=== PATIENT | male | born 1960 | race Caucasian/White ===

== ENCOUNTER 2016-09-10 00:08 | Day surgery (SDC) | payer OTHER ==
[~2016-09-10] VITALS: Ht 177.8 cm; Wt 73.6 kg
[2016-09-10] VITALS (10 sets, daily range): BP systolic 109–134; BP diastolic 69–78; PULSE 74–83; RESP 14–18; O2SAT 89–97
[~2016-09-10 00:08] MED LIST: ALBU8.5H2 INHALATION; ASPI-973 PO; FLUR15CA14 PO; FURO-129 PO; HYDR-4003 PO; SYMINH INHALATION; TIOT18CA3 IH
[2016-09-10] MEDS ORDERED: 0.9% Sodium Chloride 1,000 ML IV ONE (10:25)
[2016-09-10 11:40] LABS: BASOPHILS % (AUTO) 0.5 % (0-3); EOSINOPHILS % (AUTO) 0.7 % (0-5); Mean Corpuscular Hemoglobin 34.2 pg (27.0-35.0); NEUTROPHILS % (AUTO) 75.8 % (40-74); Platelet Count 235 bil/L (150-400)
[2016-09-10 11:52] LABS: INR 1.03 ratio
--- NOTE | 2016-09-10 12:03 | NUR ---
[facility] ADMIT 56 YEAR OLD MALE ADMITTED TO [facility] FOR HEART CATH TODAY AT 1100. PT HIGHLY ANXIOUS, DR PEREZ NOTIFIED AND PT WAS MEDICATED WITH ATIVAN 0.5MG IV ONCE IV WAS STARTED BY IVT. QUESTIONS ANSWERED, CONSENT IS SIGNED, AND MED REC COMPLETED. PT IS RESTING COMFORTABLY WITH AT BEDSIDE.
[2016-09-10] MEDS ORDERED: Heparin 5,000 Units/500 mL NS Premix IV ONE (13:24)
[2016-09-10] MEDS ORDERED: fentaNYL-PF 50 mCg/mL 2 mL Inj ONE (13:36)
[2016-09-10] MEDS ORDERED: 0.9% Sodium Chloride 250 ML IV PRN (14:20)
[2016-09-10] MEDS ORDERED: Atropine 1 mg/10 mL (Code) Syringe IVPUSH PRN (14:20)
[2016-09-10] MEDS ORDERED: HYDROcodone-APAP 5-325 mg Tablet PO PRN (14:20)
[2016-09-10] MEDS ORDERED: 0.9% Sodium Chloride 1,000 ML IV PRN (14:20)
[2016-09-10] MEDS ORDERED: Ondansetron 2 mg/mL 2 mL Inj IVPUSH PRN (14:20)
--- NOTE | 2016-09-10 17:28 | NUR ---
[facility] PT RETURNED FROM GROUP THERAPIST AT 1435. RIGHT GROIN WITH PERCLOSE HAS REMAINED SOFT, NON TENDER, NO BLEEDING OR HEMATOMA NOTED. RIGHT DP 2+. HE COMPLETED BEDREST AND AMBULATED IN [place] AND USED THE BATHROOM. RIGHT GROIN REMAINED STABLE. DR PEREZ HERE TO DISCUSS POC WITH PT AND . NO CHANGES TO MEDICATIONS AT THIS TIME. THEY WILL CALL FOR F/U APPT ONCE THEY RETURN FROM THEIR TRIP. DISCHARGE INSTRUCTIONS INCLUDING POST HEART CATH, MEDICATIONS, AND POST SEDATION INSTRUCTIONS WERE REVIEWED AND PT AND VERBALIZED UNDERSTANDING. PT WAS DISCHARGED AT 1715 WITH IN STABLE CONDITION.
--- NOTE | 2016-09-10 21:29 | CS94 ---
[place] [address] DIAGNOSTIC CARDIAC CATHETERIZATION PATIENT: CHESTER TELLEZ : 1960 MR#: [id number] ADMIT: 09/10/2016 JOB ID: [id number] SERVICE DATE: 09/10/2016 INDICATION: Severe tricuspid regurgitation. CONSENT: The patient was explained the risks, benefits, and alternatives of the procedure. Informed signed consent was obtained. PROCEDURES: 1. Right heart catheterization. 2. Selective left and right coronary angiography. 3. Left ventricular cineangiography. 4. Right groin angiography. PROCEDURE: The patient was brought to the medical lab specialist and placed on the cath table. Both groins were prepped and draped in the usual sterile manner. One percent lidocaine was infiltrated in the right groin area to achieve topical anesthesia. Using modified Seldinger technique, arterial sheath and venous sheath was placed in the right femoral artery and femoral vein respectively. Norcross-Kathie catheter was advanced under direct fluoroscopy into the right ventricular outflow tract and further advanced to the right pulmonary artery. Pulmonary artery occlusive pressures were obtained. Oxygen saturation was obtained. Subsequently, PA pressures, as well as oxygen saturation was obtained. The right ventricular and right atrial pressures and oxygen saturation were obtained in sequential manner. Thermodilution method was used to obtain cardiac outputs. After the completion of the test the Norcross-Kathie catheter was withdrawn. Subsequently an FL4 catheter was advanced over the guidewire and placed in the ostium of the left main coronary artery. Left coronary artery arteriogram was obtained in multiple projections an views. FR4 catheter was used to engage the right coronary artery. Multiple views of the right coronary artery were obtained in multiple projections. Left ventricular cineangiography was performed using 10 cc/second. A total of 30 cc of radiocontrast was used. Subsequently, right groin angiography was performed. Closure device was successfully deployed and patient was taken out of the medical lab specialist in stable condition. No complications were noted. The total fluoro time was 3.3 minutes and total contrast used 80 cc. FINDINGS: RIGHT HEART HEMODYNAMICS: The left pulmonary capillary wedge pressure was 10 mmHg. The mean PA pressure was 25 mmHg. The RV pressure was 32/12 with a mean of 14 mmHg. The RA pressure was 3 mm mmHg. The LV pressure was 149/7 with an LVEDP of 4 and aortic pressure was 147/87 with a mean of 112. Oxygen saturations: AO saturation 91%. RA pressure 58%. RV oxygen saturation was 56% and PA oxygen saturation was 52%. The cardiac output by thermodilution method is 5.08 with a cardiac index of 2.67. Alis method 3.56 with a cardiac index of 1.87. The left ventricular end-diastolic pressure was 24 mmHg. CORONARY ANGIOGRAPHY: The left main coronary artery is angiographically normal and it bifurcates into left anterior descending artery, ramus intermedius and small left circumflex. The left anterior descending artery has minimal luminal irregularities. Ramus is angiographically normal and the left circumflex is angiographically normal. The patient has a dominant right coronary artery which is free of any significant disease. The left ventricular cineangiography demonstrates overall normal systolic function. There is diverticula noted in the posterobasal segment of the heart. IMPRESSION: 1. Angiographically normal coronary arteries. 2. Normal left ventricular systolic function with diverticula noted in the posterobasal segment. 3. Elevated left ventricular end-diastolic pressure. 4. Borderline pulmonary hypertension with mean pressure of 25 mmHg. 5. No evidence of intracardiac shunts. Elevated left ventricular end-diastolic pressure is consistent with diastolic dysfunction. Findings consistent with group 3 pulmonary hypertension. COMPLICATIONS: None. CC: [facility], [address] [facility], [place], [address].
== END 2016-09-10 23:59 | disposition home or self-care (01) ==
LOC: SOUO 00:08
PROVIDERS: ATTEND Internal Medicine Cardiovascular Disease
DX: I36.1 Nonrheumatic tricuspid (valve) insufficiency (principal); I27.2 Other secondary pulmonary hypertension; J44.9 Chronic obstructive pulmonary disease, unspecified; Z87.891 Personal history of nicotine dependence; Z79.82 Long term (current) use of aspirin; I27.81 Cor pulmonale (chronic)
CPT/HCPCS: 36415; 80048; 85025; 85610; 93460; 99152; 99153; C1760; C1769; J1644; J2250; J3010; J7030; Q9967